=== PATIENT | male | born 1990 | race Hispanic/Latino ===

== ENCOUNTER 2019-06-18 15:18 | Emergency (ER) | payer BC, OTHER ==
[~2019-06-18 15:18] MED LIST: Iopamidol 370 76% 100 ML VIAL ONE
--- NOTE | 2019-06-18 16:24 | RAD ---
TWO VIEWS LEFT FOREARM: Comparison: None. History: Fall from 10 feet with left forearm pain. FINDINGS: Two views of the left forearm shows a fracture of the left radial neck. Surrounding soft tissue swell ing is seen. No ulnar fracture is seen. IMPRESSION: Left radial neck fracture. POS: [facility]
[2019-06-18] MEDS ORDERED: Morphine 4 MG/ML VIAL ONE (17:51)
[2019-06-18] MEDS ORDERED: Ketorolac Tromethamine 30 MG/ML VIAL ONE (17:51)
--- NOTE | 2019-06-18 18:12 | RAD ---
Right shoulder: 3 views INDICATION:Injury with pain FINDINGS: Humeral head has normal position. AC joint normally aligned. Deformity of the distal clavicle is note d. This may represent old injury. Definite acute fracture or dislocation. IMPRESSION: Deformity distal clavicle appears most consistent with old injury. If there is tenderness at this sit e, short-term follow-up recommended.
--- NOTE | 2019-06-18 18:13 | RAD ---
EXAM: Left femur: 4 views INDICATIONS: Injury COMPARISON: None. FINDINGS: No evidence of fracture. IMPRESSION: No acute finding
--- NOTE | 2019-06-18 18:13 | RAD ---
EXAM: Left tibia-fibula: 2 views INDICATIONS: Injury COMPARISON: None. FINDINGS: No evidence of fracture. IMPRESSION: No acute finding
--- NOTE | 2019-06-18 18:14 | RAD ---
Portable chest: HISTORY: Fall with injury COMPARISON: none FINDINGS: Lung lindsey are clear. Heart and mediastinum appear unremarkable. Vascularity is normal. Visualized osseous structures unremarkable. IMPRESSION: No acute finding
--- NOTE | 2019-06-18 18:15 | RAD ---
Left wrist:3 views. INDICATIONS:Injury with pain COMPARISON:None FINDINGS: Distal radius and ulna appear unremarkable. Carpals appear normally aligned and intact. Metacarpals appear intact. No soft tissue abnormality identified. IMPRESSION: No acute finding.
--- NOTE | 2019-06-18 18:45 | RAD ---
LEFT SHOULDER THREE VIEWS: History: Fall FINDINGS: AC joint normally aligned. No fracture or dislocation. IMPRESSION: No acute abnormality. POS: [facility]
--- NOTE | 2019-06-18 19:07 | CT ---
CT BRAIN WITHOUT CONTRAST: Indication: History of fall from approximately 5-6 feet with loss of consciousness and complaints of back, left leg, left arm and shoulder pain. Comparison: None. FINDINGS: No acute infarct, hemorrhage, or hydrocephalus is present. Septum pellucidum and third ventricle are midline. Skull and extracranial soft tissues appear within normal limits. There is a 5 mm radiopaque density within the soft tissues overlying the right zygoma suspicious for a radiopaque foreign body. IMPRESSION: No acute intracranial abnormality. Small 5 mm radiopaque foreign body within the soft tissues overlyi ng the posterior right zygoma. POS: [facility]
--- NOTE | 2019-06-18 19:11 | CT ---
CT OF THE ABDOMEN AND PELVIS WITH IV CONTRAST: Indication: History of fall with back pain, left leg pain, left arm pain. FINDINGS: Lung bases are clear. No focal hepatic lesion is evident. The spleen appears intact. The pancreas and adrenal glands are no rmal appearing. The kidneys are normal appearing. No free fluid or enlarged lymph nodes are evident. The visualized abdominal aorta is normal appearing. There is a fat containing umbilical hernia. Unopacified large and small bowel are of normal caliber. There is a normal appendix in the right lowe r quadrant. The bladder is within normal limits. The prostate, rectum, and perirectal soft tissues are normal karrie earing. No free fluid or enlarged lymph nodes are evident. The extra abdominal soft tissues appear within normal limits. There are small scattered bone islands involving both femoral heads as well as the right acetabulum. No acute fracture or subluxation is evident. Spinal alignment is preserved. IMPRESSION: 1. No acute traumatic injury seen involving the abdomen and pelvis. 2. No acute fracture or subluxation seen involving the lower thoracic/lumbar spine. POS: [facility]
== END 2019-06-18 20:39 | disposition home or self-care (01) ==
LOC: ERS 15:18
DX: S52.502A Unspecified fracture of the lower end of left radius, initial encounter for closed fracture (principal); X58.XXXA Exposure to other specified factors, initial encounter
CPT/HCPCS: 29105; 70450; 71045; 74177; 96374; 96375; J1885; J2270; Q9967